=== PATIENT | female | born 1935 | race Caucasian/White ===

== ENCOUNTER 2022-01-14 23:09 | Inpatient (IN) | payer MEDICARE, OTHER ==
[~2022-01-14] VITALS: Ht 162.6 cm; Wt 61.2 kg
--- NOTE | 2022-01-14 23:30 | NUR ---
Pt is Telugu speaking awaiting for grandson to come. Pt was brought in by ambulance for nausea and not feeling well. Had a bowel movement today.
[2022-01-14] MEDS ORDERED: ONDANSETRON 4 MG/2 ML VIAL IV ONE (23:45)
[2022-01-14] MEDS ORDERED: ONDANSETRON 4 MG/2 ML VIAL ONE (23:48)
[2022-01-15 00:04] LABS: HEMATOCRIT 32.2 % (31.2-41.9); MEAN CORPUSCULAR HEMOGLOBIN 30.8 uug (24.7-32.8); MEAN CORPUSCULAR VOLUME 89.6 fL (75.5-95.3); PLATELET COUNT (AUTO) 200 K/uL (179-408)
[2022-01-15 00:13] LABS: CARBON DIOXIDE 26 mmol/L (21-32); CHLORIDE 88 mmol/L (98-107); CREATININE 0.8 mg/dL (0.6-1.3); GLUCOSE 96 mg/dL (74-106); POTASSIUM 3.5 mmol/L (3.5-5.1); UREA NITROGEN, BLOOD 24 mg/dL (7-18)
--- NOTE | 2022-01-15 00:18 | NUR ---
pt went to Ct scan.
[2022-01-15 00:32] LABS: ALANINE AMINOTRANSFERASE 37 U/L (14-59); ALKALINE PHOSPHATASE 40 U/L (50-136); ASPARTATE AMINOTRANSFERASE 26 U/L (15-37); BILIRUBIN,DIRECT 0.2 mg/dL (0.0-0.2); BILIRUBIN,TOTAL 0.6 mg/dL (0.2-1.0); TOTAL PROTEIN, SERUM 6.7 g/dL (6.4-8.2)
[2022-01-15] MEDS ORDERED: ONDANSETRON 4 MG/2 ML VIAL IV ONE (01:15)
[2022-01-15] MEDS ORDERED: HYDROCODONE/APAP 5-325MG TABLET ONE (01:19)
[2022-01-15] MEDS ORDERED: ONDANSETRON 4 MG/2 ML VIAL ONE (01:40)
[2022-01-15] MEDS ORDERED: METO-358 PO (02:14)
[2022-01-15] MEDS ORDERED: DAPA10TA PO (02:14)
[2022-01-15] MEDS ORDERED: MELO-107 PO (02:14)
[2022-01-15] MEDS ORDERED: ENAL20TA18 PO (02:14)
[2022-01-15] MEDS ORDERED: ATOR40TA PO (02:14)
[2022-01-15] MEDS ORDERED: HYDR12.55 PO (02:14)
[2022-01-15] MEDS ORDERED: IV NORMAL SALINE 1,000 ML IV ONE (02:15)
[2022-01-15 02:54] LABS: *BILIRUBIN,URIN NEGATIVE (NEGATIVE); *BLOOD, URINE NEGATIVE (NEGATIVE); *CLARITY,URINE CLEAR (CLEAR); *COLOR,URINE YELLOW (YELLOW); *KETONES,URINE 1+ (NEGATIVE); *UROBILINOGEN,URINE 0.2 E.U./dl (NORMAL); LEUKOCYTE ESTERASE ,URINE TRACE (NEGATIVE); NITRITE, URINE NEGATIVE (NEGATIVE); UGLUCOSE 2+ (NEGATIVE)
[2022-01-15] MEDS ORDERED: diphenhydrAMINE 50 MG/1 ML VIAL IV ONE (03:15)
[2022-01-15] MEDS ORDERED: METOCLOPRAMIDE HCL 10 MG/2 ML VIAL IV ONE (03:15)
[2022-01-15 03:16] LABS: BACTERIA,URINE FEW /HPF (NONE SEEN); RBC,URINE NONE SEEN /HPF (0-3); SQUAMOUS EPITHELIAL CELL,UR FEW /HPF (NONE SEEN)
[2022-01-15] MEDS ORDERED: diphenhydrAMINE 50 MG/1 ML VIAL ONE (03:24)
[2022-01-15] MEDS ORDERED: METOCLOPRAMIDE HCL 10 MG/2 ML VIAL ONE ×3 (03:25→21:02)
[2022-01-15] MEDS ORDERED: MAGNESIUM HYDROXIDE 30 ML LIQUID UDC PO PRN (03:30)
[2022-01-15] MEDS ORDERED: REMEDY ESSENTIAL ZINC PASTE 113 GM TP PRN (03:30)
[2022-01-15] MEDS ORDERED: ACETAMINOPHEN 325 MG TABLET PO PRN (03:30)
--- NOTE | 2022-01-15 07:10 | NUR ---
Report given to MILY Williamson.
--- NOTE | 2022-01-15 07:10 | NUR ---
OBTAINED REPORT FROM OUTGOING RN JOSE MARTIN, PATIENT A,A AND ORIENTED X 3, VSS, FAMILY AT BEDSIDE,REQUESTED FAMILY TO BRING IN [facility] PER PHARMACY.
[2022-01-15 08:00] VITALS: BP 137/67
--- NOTE | 2022-01-15 08:58 | NUR ---
AWAITING PHARMACY TO VERIFY MEDS AND NOTIFY REGISTRATION.
[2022-01-15] MEDS ORDERED: MELOXICAM 15 MG PO SCH (09:00)
[2022-01-15] MEDS ORDERED: Dapagliflozin Propanediol (Farxiga) 10 MG) PO SCH (09:00)
[2022-01-15] MEDS ORDERED: Medication Not On Formulary EA (Enalapril Maleate 20 MG) PO SCH (09:00)
[2022-01-15] MEDS ORDERED: ENALAPRIL 10 MG TABLET ONE (09:56)
[2022-01-15] MEDS ORDERED: METOPROLOL SUCCINATE XL 50 MG TAB.SR.24H PO ONE (09:56)
[2022-01-15] MEDS: ENALAPRIL 10 MG TABLET PO SCH (11:09)
[2022-01-15] MEDS: METOPROLOL SUCCINATE XL 50 MG TAB.SR.24H PO SCH (11:10)
[2022-01-15] MEDS: METOCLOPRAMIDE HCL 10 MG/2 ML VIAL IV SCH ×4 (11:10→21:19)
[2022-01-15] MEDS: IV NS 1000 ML 1,000 ML IV PRN (11:13)
[2022-01-15 12:00] VITALS: BP 142/58
--- NOTE | 2022-01-15 12:00 | NUR ---
DENIES N/V, HOME MEDS ADMINISTERED AND BLOOD PRESSURE TRENDING DOWN, DENIES N/V VERBALIZED REGLAN CAUSING DROWSINESS.
[2022-01-15] MEDS ORDERED: [UNRECOGNIZED DRUG - OTHER] PO SCH (13:00)
[2022-01-15] MEDS ORDERED: FARXIGA 10 MG PO SCH (13:00)
[2022-01-15] MEDS ORDERED: METF-440 PO (13:35)
[2022-01-15] MEDS ORDERED: HYDR-4077 PO (13:35)
[2022-01-15] MEDS ORDERED: OMEP20TA5 PO (13:35)
[2022-01-15 16:00] VITALS: BP 138/65
--- NOTE | 2022-01-15 16:00 | NUR ---
SERJIO IVF AND PO FLUIDS VOIDING WITHOUT DIFFICULTY. AWAITING BED AVAIL. MAINTAIN SAFE ENVIRONMENT
[2022-01-15] MEDS ORDERED: ENOXAPARIN SODIUM 40 MG/0.4 ML DISP.SYRIN SQ ONE (17:57)
[2022-01-15] MEDS: ENOXAPARIN SODIUM 40 MG/0.4 ML DISP.SYRIN SQ SCH (18:12)
[2022-01-15 20:00] VITALS: BP 105/71
[2022-01-15] MEDS ORDERED: ATORVASTATIN 40 MG TABLET ONE (21:02)
[2022-01-15] MEDS: ATORVASTATIN 40 MG TABLET PO SCH (21:06)
--- NOTE | 2022-01-15 21:20 | NUR ---
REFUSED REGLAN 10 MG REPORTS DIZZINESS AND UNSTEADY GAIT.
--- NOTE | 2022-01-15 23:15 | NUR ---
REPORT GIVEN TO JUAN ALBERTO MINOR ASSUMING CARE, NO INJURIES ON SHIFT AND VSS.
[2022-01-16 06:26] LABS: HEMATOCRIT 33.1 % (31.2-41.9); MEAN CORPUSCULAR HEMOGLOBIN 30.7 uug (24.7-32.8); PLATELET COUNT (AUTO) 182 K/uL (179-408)
[2022-01-16 06:49] LABS: CARBON DIOXIDE 29 mmol/L (21-32); CHLORIDE 105 mmol/L (98-107); POTASSIUM 3.7 mmol/L (3.5-5.1)
[2022-01-16 06:50] LABS: GLUCOSE 95 mg/dL (74-106); UREA NITROGEN, BLOOD 22 mg/dL (7-18)
[2022-01-16 06:51] LABS: PHOSPHOROUS 3.7 mg/dL (2.5-4.9)
[2022-01-16 06:52] LABS: MAGNESIUM 1.8 mg/dL (1.8-2.4)
--- NOTE | 2022-01-16 07:12 | NUR ---
BEDSIDE REPORT OBTAINED AND CARE ASSUME, REPORTS NAUSEA AND DIZZINESS ALL NIGHT, DENIES CP AND NO EMESIS. VSS. BED AVAIL AND PATIENT NOTIFIED.
--- NOTE | 2022-01-16 07:41 | NUR ---
Report given to Teri.
[2022-01-16 08:00] VITALS: BP 144/76
[2022-01-16] MEDS: ENALAPRIL 10 MG TABLET PO SCH (09:00)
[2022-01-16] MEDS: METOPROLOL SUCCINATE XL 50 MG TAB.SR.24H PO SCH (09:00)
[2022-01-16] MEDS ORDERED: ENALAPRIL 10 MG TABLET ONE (09:13)
[2022-01-16] MEDS ORDERED: MECLIZINE HCL 25 MG TABLET ONE (09:13)
[2022-01-16] MEDS ORDERED: ONDANSETRON 4 MG/2 ML VIAL ONE ×2 (09:13→09:14)
[2022-01-16] MEDS ORDERED: ENOXAPARIN SODIUM 40 MG/0.4 ML DISP.SYRIN SQ ONE (09:13)
[2022-01-16] MEDS ORDERED: METOPROLOL SUCCINATE XL 50 MG TAB.SR.24H PO ONE (09:13)
[2022-01-16] MEDS ORDERED: ONDANSETRON 4 MG/2 ML VIAL IV PRN (09:15)
[2022-01-16] MEDS: MECLIZINE HCL 25 MG TABLET PO SCH ×3 (09:30→22:29)
[2022-01-16] MEDS: ENOXAPARIN SODIUM 40 MG/0.4 ML DISP.SYRIN SQ SCH (09:31)
--- NOTE | 2022-01-16 10:27 | NUR ---
REPORT WAS GIVEN TO COLD REDUCTION ROLLER. PT WAS TRANSFERED TO ROOM #322.
--- NOTE | 2022-01-16 10:35 | NUR ---
REPORT RECEIVE FOR PRANAV CARDOZO RN. [facility] PT DX WAS SUNITHA, INTRACTABLE NAUSEA. PT AO X4; [place] SPEAKING BUT CAN UNDERSTAND LITTLE NEPALI. SKIN INTACT. PT IS AMBULATORY. SELF CARE. PT HAS RFA 20G RUNNING ON NS 100ML/HR. CARDIAC DIET.
--- NOTE | 2022-01-16 11:00 | NUR ---
RECEIVED ARRIVE AT THE UNIT VIA [employer]. PT WILL GO TO RM 322.
[2022-01-16] MEDS: [UNRECOGNIZED DRUG - OTHER] PO SCH (13:29)
[2022-01-16] MEDS: FARXIGA 10 MG PO SCH (13:29)
[2022-01-16] MEDS: IV NS 1000 ML 1,000 ML IV PRN (17:06)
--- NOTE | 2022-01-16 18:30 | NUR ---
PT AWAKE AND COOPERATIVE; NO PAIN COMPLAIN; NO SOB; FAMILY AT BEDSIDE; PT ATE HER MEAL 100%
[2022-01-16 20:18] VITALS: BP 137/52
[2022-01-16] MEDS: ATORVASTATIN 40 MG TABLET PO SCH (21:05)
[2022-01-17] MEDS: IV NS 1000 ML 1,000 ML IV PRN (03:52)
[2022-01-17 04:24] VITALS: BP 120/54
[2022-01-17] MEDS: MECLIZINE HCL 25 MG TABLET PO SCH ×2 (05:20→13:47)
--- NOTE | 2022-01-17 05:27 | NUR ---
PT SLEPT THROUGHOUT THE NIGHT; DENIES ANY N/V; NO PAIN; NO SOB; V/S WNL; WILL CONT TO MONITOR
[2022-01-17 07:12] LABS: HEMATOCRIT 29.9 % (31.2-41.9); MEAN CORPUSCULAR VOLUME 91.1 fL (75.5-95.3); PLATELET COUNT (AUTO) 167 K/uL (179-408)
[2022-01-17 07:15] LABS: CREATININE 0.9 mg/dL (0.6-1.3); MAGNESIUM 1.9 mg/dL (1.8-2.4); POTASSIUM 3.7 mmol/L (3.5-5.1)
[2022-01-17] MEDS: [UNRECOGNIZED DRUG - OTHER] PO SCH (09:26)
[2022-01-17] MEDS: FARXIGA 10 MG PO SCH (09:26)
[2022-01-17] MEDS: METOPROLOL SUCCINATE XL 50 MG TAB.SR.24H PO SCH (09:28)
[2022-01-17] MEDS: ENALAPRIL 10 MG TABLET PO SCH (09:28)
[2022-01-17] MEDS: ENOXAPARIN SODIUM 40 MG/0.4 ML DISP.SYRIN SQ SCH (09:36)
[2022-01-17] MEDS ORDERED: ONDA4TAB11 PO (11:16)
[2022-01-17] MEDS ORDERED: MECL-159 PO (11:16)
[2022-01-17 12:04] VITALS: BP 135/66
--- NOTE | 2022-01-17 14:30 | NUR ---
PATIENTS GRAND SON ERNA HERE AND STATED THAT PATIENTS PRIVATE PHARMACY IS CLOSED TODAY SO TEZ NOTIFIED AND HE WROTE A HAND WRITTEN PRESCRIPTION BECAUSE HE HAD ORIGINALLY SENT IT ELECTRONICALLY SO I GAVE IT TO ERNA AND HE STATED WILL GO AND FILL UP THE PRESCRIPTIONS AND WILL THEN COME BACK THIS EVENING TO [facility] THE PATIENT AND NOTED PATIENT AWARE.
[2022-01-17 16:54] VITALS: BP 161/67
--- NOTE | 2022-01-17 19:00 | NUR ---
PATIENT DISCHARGED PICKED UP BY HER GRAND SON IN SATISFACTORY CONDITION WITH DISCHARGE INSTRUCTIONS DUY ALREADY PICKED UP HER PRESCRIPTION NOT IN DISTRESS AT THIS TIME
== END 2022-01-17 19:00 | disposition home or self-care (01) | DRG 640 ==
LOC: ER 23:18 → TRANSITION 01-15 03:19 → MEDSURG3 01-16 08:51
PROVIDERS: ADMIT Nurse Practitioner Family; ATTEND Nurse Practitioner Family
DX: E86.0 Dehydration (principal); N17.0 Acute kidney failure with tubular necrosis; E87.1 Hypo-osmolality and hyponatremia; E11.9 Type 2 diabetes mellitus without complications; E86.1 Hypovolemia; E88.09 Other disorders of plasma-protein metabolism, not elsewhere classified; I10 Essential (primary) hypertension; M19.90 Unspecified osteoarthritis, unspecified site; Z87.442 Personal history of urinary calculi; R11.2 Nausea with vomiting, unspecified; Z79.84 Long term (current) use of oral hypoglycemic drugs; G44.209 Tension-type headache, unspecified, not intractable; T50.2X5A Adverse effect of carbonic-anhydrase inhibitors, benzothiadiazides and other diuretics, initial encounter; Y92.009 Unspecified place in unspecified non-institutional (private) residence as the place of occurrence of the external cause; Z20.822 Contact with and (suspected) exposure to COVID-19
CPT/HCPCS: 36415; 70450; 71045; 83605; 83735; 84100; 84484; 85025; 85651; 87040; 93005; A4663; A6213; G0378; J1200; J1650; J2405; J2765; J7040; J8597